=== PATIENT | female | born 1970 | race Caucasian/White ===

== ENCOUNTER 2025-04-20 10:50 | Outpatient (AMB) | payer BC, SELFPAY ==
--- NOTE | 2025-04-20 10:58 | MHC.PC.OV ---
Vital Signs 04/20/25 10:59 04/20/25 11:10 Height 5 ft 0.87 in Weight 126 lb 6 oz BMI 24.0 BP 136/94 H 134/96 H Blood Pressure Location Lt brachial Lt brachial Position Sitting Sitting Respiration 14 Pulse 85 Pulse Source Pulse Oximeter Temp 97.5 F Temp Source Oral Pulse Oximetry (%) 98 Oxygen Delivery Method Room Air Intake Visit Reasons: [employer] Intake Note: New patient visit [employer] Required: No Allergies bacitracin Allergy (Severe, Verified 04/20/25 11:01) Anaphylaxis Sulfa (Sulfonamide Antibiotics) Allergy (Mild, Verified 04/20/25 11:01) Rash adhesive tape Allergy (Unknown, Verified 04/20/25 11:02) Rash covid vaccine Allergy (Mild, Uncoded 04/20/25 11:02) swelling face Tobacco use date assessed: 04/20/25 Dental Screening Dental Screen Date: 04/20/25 Did you have a dental visit in the last 12 months?: Yes Did you have a dental problem in the last 6 months where you did not have access to dental care?: No Was dental information given to patient?: Patient has dentist HPI HPI Comments History of Present Illness Details This is a 54-year-old female here to establish care. She was previously seen by Dr. Whitney and Dr. Solano. She has a history of depression, endometriosis, hemorrhoids, papillary adenocarcinoma of the thyroid, IBS, liver lesions, lumbar radiculopathy, right lung nodule. Her geodetic advisor is Dr. Barrios. Patient reports she had a colonoscopy in 2022. She was told it was normal in to repeat it in 10 years. History of papillary thyroid cancer- She also had a total thyroidectomy and central neck dissection in June of 2015. She sees endocrinology at [facility]. Her blood pressure today was 134/96 initially. She endorses white coat hypertension. She took her blood pressure at home this morning and it was 116/82. She has been seen by primary care and general surgery for pelvic lymphadenopathy for the past couple of years. Lymph nodes are nontender. She had a an ultrasound in December of 2024 which showed a few nonenlarged morphologically normal inguinal lymph nodes in the groin bilaterally that demonstrate preserved fatty trace and normal central vascularity and there was no significant change from December 2023. The patient is concerned and explained that her thyroid cancer was initially thought to be benign nodules, but she advocated for an endocrinology consult, and it turned out she had cancer. Patient says she saw two General surgeons at [facility] who recommended against biopsy. She had a referral to Hematology, but they said since there was no biopsy done there was no indication to see them. She has mammograms and ultrasounds for screening/dense breast tissue. Her business development representative is Dr. Ugarte. She is followed by pulmonology and Cardiology at the [facility] due to shortness of breath following thyroidectomy. She said she had numerous diagnostic tests which were inconclusive. She has mild hyperlipidemia with an LDL of 130. She brought up her lab report from January. This was on her phone. Her ASCVD risk score is low at 1%. LDL 130 but ASCVD 1% based ROS: Constitutional: No fevers or chills. Denies weight loss. Respiratory: See HPI Cardiovascular: No chest pain Gastrointestinal: No vomiting or diarrhea. No abdominal pain. No blood in stool. Genitourinary: No dysuria, hematuria, urinary frequency. Hematologic/Lymphatics: No bleeding or bruising. See HPI Skin: No rash Psychiatric: No SI or HI Physical exam: Constitutional: Alert, in no distress. Neck: Supple, Full range of motion. No lymphadenopathy. No palpable masses. Respiratory: Clear to auscultation. Cardiovascular: S1 S2 regular. No murmurs. Gastrointestinal: Abdomen soft, non-tender, non-distended. Normal bowel sounds. No palpable masses. Lymph nodes: Multiple, palpable enlarged/prominent inguinal lymph nodes bilaterally. [facility] Medical History (Updated 04/20/25 @ 13:15 by NAOMI Rasmussen) Chronic dyspnea Phantosmia Nodule of right lung Lumbar radiculopathy Liver hemangioma Liver cyst IBS (irritable bowel syndrome) History of papillary adenocarcinoma of thyroid Endometriosis History of depression Dense breast tissue Carpal tunnel syndrome Burning mouth syndrome Adenomyosis of uterus Inguinal lymphadenitis Surgical History (Updated 04/20/25 @ 10:41 by Ashley Lara CMA) History of carpal tunnel surgery H/O thyroidectomy H/O colonoscopy H/O right heart catheterization H/O laparoscopy H/O arthroscopic knee surgery Family History (Updated 04/20/25 @ 11:11 by Ashley Lara CMA) Mother Cancer of skin Cancer of uterus Diabetes Endometrial cancer Hyperlipidemia HTN (hypertension) Osteoporosis Pulmonary HTN Sleep apnea Thyroid cancer Father Hx of CABG Coronary artery disease COPD (chronic obstructive pulmonary disease) FH: prostate cancer Diabetes Hyperlipidemia Heart disease Leukemia Paternal Grandmother Breast cancer Paternal Aunt Breast cancer Maternal Aunt Endometrial cancer Brother Diabetes HTN (hypertension) Social History Patient Tobacco Use Status: Never used Tobacco e-Cigarette/Vaping Use: Never Used Second Hand Smoke Exposure: No service: No Current occupational status: employed Current occupation: [employer] Current occupational exposures/hazards: No Cognitive needs: No Hearing needs: No Vision needs: Yes (contacts) Questionnaire PHQ-9 Over the last 2 weeks, how often have you been bothered by any of the following problems? 1. Little interest or pleasure in doing things: not at all 2. Feeling down, depressed, or hopeless: not at all 3. Trouble falling or staying asleep, or sleeping too much: nearly every day 4. Feeling tired or having little energy: nearly every day 5. Poor appetite or overeating: nearly every day 6. Feeling bad about yourself - or that you are a failure or have let yourself or your family down: not at all 7. Trouble concentrating on things, such as reading the newspaper or watching television: not at all 8. Moving or speaking so slowly that other people could have noticed. Or the opposite - being so fidgety or restless that you have been moving around a lot more than usual: not at all 9. Thoughts that you would be better off or of hurting yourself in some way: not at all Total score: 9 Depression Screening Interpretation: Positive Depression Screening Follow-up: Existing condition Depression Screening Done: Yes 43497 - PHQ-9 Billing: Yes Source: Developed by Drs. Andrew Koch, Sumaya Celaya, Xavi Cheng and colleagues, with an educational jairo from [employer]. Thrive Questionnaire Date Thrive assessed: 04/13/25 I am a: Patient What is your living situation today?: I have a steady place to live Within the past 12 months, did the food you bought not last and you didn't have the money to get more?: Never true Within the past 12 months, did you worry whether your food would run out before you got money to buy more?: Never true Do you have trouble paying for medicines?: No Do you have trouble getting transportation to medical appointments?: No Do you have trouble paying your heating and electricity bill?: No Do you have trouble taking care of your child, family member or friend?: No Do you have trouble with day-to-day activities such as bathing, preparing meals, shopping, managing finances, etc.?: No Are you currently unemployed and looking for a job?: No Are you interested in more education?: No Please select the resources that you would like help with: None Currently or been in a relationship where the following occur: No concerns reported THRIVE Score: 0 AUDIT C Alcohol Use Questionnaire (AUDIT-C) 1. How often do you have a drink containing alcohol?: 4 or more times a week 2. How many drinks containing alcohol do you have on a typical day when you are drinking?: 1 or 2 3. How often do you have six or more drinks on one occasion?: Never Total Score: 4 ELOISA-7 AMB Questionnaire ELOISA-7 Date ELOISA - 7 assessed: 04/20/25 Feeling nervous, anxious, or on edge: 0 = Not at all Not being able to stop or control worryin = Not at all Worrying too much about different things: 0 = Not at all Trouble relaxin = Not at all Being so restless that it is hard to sit still: 0 = Not at all Becoming easily annoyed or irritable: 0 = Not at all Feeling afraid as if something awful might happen: 0 = Not at all Total ELOISA-7 score (0-4 normal; 5-9 mild; 10-14 moderate; 15-21 severe): 0 Source: Developed by Drs. Andrew Koch, Sumaya Celaya, Xavi Cheng and colleagues, with an educational jairo from [employer]. ELOISA-7 Assessment Billing ELOISA-7 Assessment Tool: ELOISA-7 Assessment 38175 Physical exam (Primary Care) Vital Signs: Last Vital Signs Temp 97.5 F 04/20/25 10:59 Pulse 85 04/20/25 10:59 Resp 14 04/20/25 10:59 BP 134/96 H 04/20/25 11:10 Pulse Ox 98 04/20/25 10:59 Oxygen Delivery Method Room Air 04/20/25 10:59 BMI result Body Mass Index 24.0 Tobacco/Smoking Status: Tobacco use Status Tobacco use date assessed 04/20/25 04/20/25 11:07 Patient Tobacco Use Status Never used Tobacco 04/20/25 11:07 e-Cigarette/Vaping Use Never Used 04/20/25 11:07 PHQ-9: PHQ-9 Score PHQ-9: Total score 9 04/20/25 11:44 Depression Screening Interpretation: Positive Depression Screening Follow-up: Existing condition Thrive Assessment: Date of Thrive Assessment Date Thrive assessed 04/13/25 04/20/25 11:07 Currently or been in a relationship where the following occur: No concerns reported Coding Level of Care Code New Pt Level 4 (24243) Complex EM visit Add On G2211 Diagnoses Inguinal lymphadenitis I88.9 Nodule of right lung R91.1 Chronic dyspnea R06.09 History of papillary adenocarcinoma of thyroid Z85.850 Endometriosis N80.9 Additional Codes ELOISA-7 Assessment Billing - ELOISA-7 Assessment Tool: ELOISA-7 Assessment 06087 ([id number]) PHQ-9 - 75936 - PHQ-9 Billing: Yes ([id number]) Assessment & Plan Assessment & Plan (1) Inguinal lymphadenitis: Code(s): I88.9 - Nonspecific lymphadenitis, unspecified Category: Medical (2) Nodule of right lung: Code(s): R91.1 - Solitary pulmonary nodule Category: Medical (3) Chronic dyspnea: Comment: After thyroid surgery, no cause identified. Followed by Cardiology and pulmonology at the [facility] Code(s): R06.09 - Other forms of dyspnea Category: Medical (4) History of papillary adenocarcinoma of thyroid: Code(s): Z85.850 - Personal history of malignant neoplasm of thyroid Category: Medical (5) Endometriosis: Code(s): N80.9 - Endometriosis, unspecified Category: Medical Plan In summary this is a 54-year-old female presenting to [facility]. She is followed by multiple specialists in [place] including Cardiology, pulmonology in endocrinology. No known recurrence of thyroid cancer. She has been evaluated for chronic dyspnea with nondiagnostic testing. This is stable. Her main concern is enlarged lymph nodes in the groin. She saw General surgery, and biopsy was not advised, but physical exam findings are persistent. Despite negative ultrasound this does require further evaluation so we will proceed with MRI of the pelvis. If this is negative we can order serial ultrasounds annually to monitor. Patient is agreeable to plan. She will schedule her physical exam. Orders: Orders MR pelvis wo/w con Today I88.9 - Nonspecific lymphadenitis, unspecified Comprehensive Met. Panel 12/16/25 I88.9 - Nonspecific lymphadenitis, unspecified, K76.89 - Other specified diseases of liver, M54.16 - Radiculopathy, lumbar region, R44.2 - Other hallucinations, Z85.850 - Personal history of malignant neoplasm of thyroid Complete Blood Count Auto Diff 12/16/25 I88.9 - Nonspecific lymphadenitis, unspecified, K76.89 - Other specified diseases of liver, M54.16 - Radiculopathy, lumbar region, R44.2 - Other hallucinations, Z85.850 - Personal history of malignant neoplasm of thyroid Lipid Panel 12/16/25 E78.5 - Hyperlipidemia, unspecified, I88.9 - Nonspecific lymphadenitis, unspecified, K76.89 - Other specified diseases of liver, M54.16 - Radiculopathy, lumbar region, R44.2 - Other hallucinations, Z85.850 - Personal history of malignant neoplasm of thyroid Vitamin D 25-OH (D2 and D3) 12/16/25 I88.9 - Nonspecific lymphadenitis, unspecified, K76.89 - Other specified diseases of liver, M54.16 - Radiculopathy, lumbar region, R44.2 - Other hallucinations, Z85.850 - Personal history of malignant neoplasm of thyroid TSH reflex Free T4 12/16/25 I88.9 - Nonspecific lymphadenitis, unspecified, K76.89 - Other specified diseases of liver, M54.16 - Radiculopathy, lumbar region, R44.2 - Other hallucinations, Z85.850 - Personal history of malignant neoplasm of thyroid UA w Microscopic 12/16/25 I88.9 - Nonspecific lymphadenitis, unspecified, K76.89 - Other specified diseases of liver, M54.16 - Radiculopathy, lumbar region, R39.9 - Unspecified symptoms and signs involving the genitourinary system, R44.2 - Other hallucinations, Z85.850 - Personal history of malignant neoplasm of thyroid
[2025-04-20 10:59] VITALS: BP 136/94; PULSE 85; RESP 14; TEMP 36.4; O2SAT 98; BMI 24.0
[2025-04-20 11:10] VITALS: BP 134/96
== END 2025-04-20 11:46 | disposition home or self-care (01) ==
LOC: HO.HMCFM 10:51
PROVIDERS: PCP Physician Assistant Medical; Visit Provider Physician Assistant Medical
DX: I88.9 Nonspecific lymphadenitis, unspecified (principal); R91.1 Solitary pulmonary nodule; R06.09 Other forms of dyspnea; Z85.850 Personal history of malignant neoplasm of thyroid; N80.9 Endometriosis, unspecified

== ENCOUNTER → 2025-04-20 10:50 | Outpatient (BNVA) | payer BC, SELFPAY | PROVIDERS: PCP Physician Assistant Medical; Visit Provider Physician Assistant Medical | DX: Z76.89 Persons encountering health services in other specified circumstances (principal); I88.9 Nonspecific lymphadenitis, unspecified; R91.1 Solitary pulmonary nodule; R06.09 Other forms of dyspnea; N80.9 Endometriosis, unspecified; Z85.850 Personal history of malignant neoplasm of thyroid; Z13.31 Encounter for screening for depression; Z13.39 Encounter for screening examination for other mental health and behavioral disorders | CPT/HCPCS: 96127 ==